=== PATIENT | female | born 1985 | race Caucasian/White ===

== ENCOUNTER 2021-12-04 08:15 | Inpatient (IN) | payer MEDICAID ==
[~2021-12-04] VITALS: Ht 147.3 cm; Wt 103.9 kg
[2021-12-04] MEDS ORDERED: METHYLERGONOVINE MALEATE 0.2 MG/ML IM PRN (09:15)
[2021-12-04] MEDS ORDERED: CARBOPROST TROMETHAMINE 250 MCG/ML AMPUL IM PRN (09:15)
[2021-12-04] MEDS ORDERED: NALOXONE HCL 0.4 MG/ML 1ML VIAL IM PRN (09:15)
[2021-12-04] MEDS ORDERED: OXYTOCIN 30 UNITS/500ML NS PMX 500 ML IV SCH ×2 (09:15→12:15)
[2021-12-04 09:27] LABS: BASOPHILS % 0.4 % (0.0-2.0); EOSINOPHILS % 1.2 % (0.0-5.0); HEMATOCRIT. 34.5 % (36.0-48.0); HEMOGLOBIN. 11.4 g/dL (12.0-16.0); LYMPHOCYTES % 25.1 % (20.0-50.0); MEAN CORPUSCULAR VOLUME 84.5 fL (81.0-99.0); MEAN PLATELET VOLUME 9.8 fl (7.4-10.4); MONOCYTES % 6.6 % (2.0-8.0); NEUTROPHILS % 66.7 % (40.0-76.0); PLATELET 262 x1000/uL (130-400); RED BLOOD CELL COUNT 4.09 mill/uL (4.2-5.4); RED CELL DISTRIBUTION WIDTH 14.8 % (11.6-14.6)
[2021-12-04 09:30] LABS: CLARITY URINE CLEAR (CLEAR); COLOR URINE YELLOW (YELLOW); KETONES URINE NEGATIVE (NEGATIVE); LEUKOCYTE ESTERASE URINE NEGATIVE (NEGATIVE); NITRITE URINE NEGATIVE (NEGATIVE); OCCULT BLOOD URINE NEGATIVE (NEGATIVE); PROTEIN URINE NEGATIVE (NEGATIVE); SPECIFIC GRAVITY URINE 1.014 (1.005-1.030); UROBILINOGEN URINE 0.2 E.U./dL (0.2-1.0)
[2021-12-04] MEDS ORDERED: CITRIC ACID/SODIUM CITRATE SOLN 30ML UDC PO NR (09:30)
[2021-12-04 09:39] LABS: INR 0.9; PARTIAL THROMBOPLASTIN TIME 25.6 sec (23.4-31.0); PROTHROMBIN TIME 9.8 sec (9.6-11.0)
[2021-12-04] MEDS ORDERED: FENTANYL CITRATE/PF 50MCG/ML 2ML VIAL ONE (09:43)
[2021-12-04] MEDS ORDERED: EPHEDRINE SULFATE 50MG/ML VIAL ONE (09:43)
[2021-12-04] MEDS ORDERED: MORPHINE SULFATE/PF 1MG/ML 10ML AMP ONE (09:43)
[2021-12-04] MEDS ORDERED: CEFAZOLIN SODIUM 1000MG/VIAL ONE (09:44)
[2021-12-04] MEDS ORDERED: ONDANSETRON HCL 4MG/2ML INJ ONE (09:44)
[2021-12-04] MEDS ORDERED: PHENYLEPHRINE HCL 10 MG/ML 1ML (IV VIAL) IV ONE (09:44)
[2021-12-04] MEDS ORDERED: OXYTOCIN 10 UNITS/ML 1ML ONE (09:44)
[2021-12-04] MEDS ORDERED: DIPHENHYDRAMINE 50MG/ML VIAL ONE (09:44)
[2021-12-04 09:55] LABS: *AMPHETAMINES SCREEN URINE NEGATIVE (NEGATIVE); *BARBITURATES SCREEN URINE NEGATIVE (NEGATIVE); *BENZODIAZEPINES SCREEN URINE NEGATIVE (NEGATIVE); *COCAINE SCREEN URINE NEGATIVE (NEGATIVE); CANNABINOID URINE SCREEN NEGATIVE (NEGATIVE); METHADONE URINE SCREEN NEGATIVE (NEGATIVE); OPIATES URINE SCREEN NEGATIVE (NEGATIVE); PHENCYCLIDINE URINE SCREEN NEGATIVE (NEGATIVE)
[2021-12-04] MEDS: LACTATED RINGERS 1,000 ML IV SCH ×2 (10:04→10:05)
[2021-12-04 10:15] LABS: HEPATITIS B SURFACE ANTIGEN NEGATIVE
[2021-12-04 10:59] VITALS: BP 126/71
[2021-12-04] MEDS ORDERED: LACTATED RINGERS 1,000 ML IV SCH (11:15)
[2021-12-04] MEDS ORDERED: KETOROLAC 60MG/2ML VIAL IM ONE (11:51)
[2021-12-04] MEDS ORDERED: NALOXONE HCL 0.4 MG/ML 1ML VIAL IV PRN (12:15)
[2021-12-04] MEDS ORDERED: ONDANSETRON HCL 4MG/2ML INJ IV PRN (12:15)
[2021-12-04] MEDS ORDERED: RHO(D) IMMUNE GLOBULIN 300 MCG/SYR IM PRN (12:15)
[2021-12-04] MEDS ORDERED: BISACODYL 10MG SUPP PR PRN (12:15)
[2021-12-04] MEDS ORDERED: LANOLIN OINT 7GM TUBE TOP PRN (12:15)
[2021-12-04] MEDS ORDERED: HEMORRHOIDAL SUPP PR PRN (12:15)
[2021-12-04] MEDS ORDERED: BUTORPHANOL TARTRATE 2 MG/ML VIAL IV PRN (12:15)
[2021-12-04] MEDS ORDERED: DIPHENHYDRAMINE 25MG CAPSULE PO PRN (12:15)
[2021-12-04] MEDS ORDERED: DIPHENHYDRAMINE 50MG/ML VIAL IM PRN (12:15)
[2021-12-04] MEDS ORDERED: IBUPROFEN 400MG TABLET PO PRN (12:15)
[2021-12-04 14:40] VITALS: BP 122/68
[2021-12-04] MEDS ORDERED: INFLUENZA VACCINE 05/PF 0.5 ML SYRINGE IM ONE (15:45)
[2021-12-04 16:00] VITALS: BP 114/56
[2021-12-04] MEDS ORDERED: TETANUS, DIPHTHERIA, PERTUSSIS VAC/PF 0.5ML (>10YR OLD) IM ONE (16:00)
[2021-12-04] MEDS: SIMETHICONE 80MG TABLET CHEW PO SCH ×2 (17:28→21:00)
[2021-12-04] MEDS: MAGNESIUM/ALUMINUM HYDROXIDE/SIMETHICONE 30ML UDC PO SCH ×2 (17:28→21:00)
[2021-12-04] MEDS: KETOROLAC 30MG/ML VIAL IV SCH (17:29)
[2021-12-04 20:00] VITALS: BP 104/57
[2021-12-04] MEDS: DOCUSATE SODIUM 100MG CAPSULE PO SCH (21:00)
[2021-12-05] MEDS: KETOROLAC 30MG/ML VIAL IV SCH ×2 (00:45→06:38)
[2021-12-05 04:00] VITALS: BP 105/52
[2021-12-05 05:55] LABS: BASOPHILS % 0.2 % (0.0-2.0); EOSINOPHILS % 0.7 % (0.0-5.0); HEMATOCRIT. 27.7 % (36.0-48.0); HEMOGLOBIN. 9.4 g/dL (12.0-16.0); LYMPHOCYTES % 16.5 % (20.0-50.0); MEAN CORPUSCULAR HEMOGLOBIN 28.5 pg (28.0-32.0); MEAN CORPUSCULAR VOLUME 83.9 fL (81.0-99.0); MEAN PLATELET VOLUME 9.3 fl (7.4-10.4); MONOCYTES % 6.1 % (2.0-8.0); NEUTROPHILS % 76.5 % (40.0-76.0); PLATELET 199 x1000/uL (130-400); RED CELL DISTRIBUTION WIDTH 14.8 % (11.6-14.6)
[2021-12-05 08:00] VITALS: BP 112/59
[2021-12-05] MEDS: SIMETHICONE 80MG TABLET CHEW PO SCH ×4 (08:29→21:03)
[2021-12-05] MEDS: MAGNESIUM/ALUMINUM HYDROXIDE/SIMETHICONE 30ML UDC PO SCH ×4 (08:29→21:03)
[2021-12-05] MEDS: FERROUS SULFATE 325MG TABLET PO SCH ×3 (08:29→17:25)
[2021-12-05] MEDS: PRENATAL VIT/FE FUMARATE/FA TABLET PO SCH (08:30)
[2021-12-05 16:02] VITALS: BP 108/47
[2021-12-05] MEDS: IBUPROFEN 800MG TABLET PO PRN (17:26)
[2021-12-05] MEDS: DOCUSATE SODIUM 100MG CAPSULE PO SCH (21:04)
[2021-12-05] MEDS: ACETAMINOPHEN WITH CODEINE 300/30MG TABLET PO PRN (21:05)
[2021-12-05 21:59] VITALS: BP 112/51
[2021-12-06] MEDS: IBUPROFEN 800MG TABLET PO PRN ×3 (05:19→23:16)
[2021-12-06 06:00] VITALS: BP 116/61
[2021-12-06] MEDS: PRENATAL VIT/FE FUMARATE/FA TABLET PO SCH (08:27)
[2021-12-06] MEDS: MAGNESIUM/ALUMINUM HYDROXIDE/SIMETHICONE 30ML UDC PO SCH ×4 (08:27→20:50)
[2021-12-06] MEDS: SIMETHICONE 80MG TABLET CHEW PO SCH ×4 (08:27→20:50)
[2021-12-06] MEDS: FERROUS SULFATE 325MG TABLET PO SCH ×3 (08:27→17:51)
[2021-12-06 08:30] VITALS: BP 110/51
[2021-12-06] MEDS: ACETAMINOPHEN WITH CODEINE 300/30MG TABLET PO PRN (11:03)
[2021-12-06 15:45] VITALS: BP 116/69
[2021-12-06 20:00] VITALS: BP 121/75
[2021-12-06] MEDS: DOCUSATE SODIUM 100MG CAPSULE PO SCH (20:50)
[2021-12-07 04:30] VITALS: BP 116/52
[2021-12-07] MEDS ORDERED: IBUP-2030 PO (06:35)
[2021-12-07 08:00] VITALS: BP 113/54
[2021-12-07] MEDS: MAGNESIUM/ALUMINUM HYDROXIDE/SIMETHICONE 30ML UDC PO SCH (08:02)
[2021-12-07] MEDS: PRENATAL VIT/FE FUMARATE/FA TABLET PO SCH (08:02)
[2021-12-07] MEDS: SIMETHICONE 80MG TABLET CHEW PO SCH (08:02)
[2021-12-07] MEDS: FERROUS SULFATE 325MG TABLET PO SCH (08:02)
[2021-12-07 08:03] VITALS: BP 116/52
[2021-12-07] MEDS: IBUPROFEN 800MG TABLET PO PRN (08:03)
== END 2021-12-07 12:35 | disposition home or self-care (01) | DRG 539 ==
LOC: 8 EST LDRP 08:15 → OBSVTOIN 08:15 → 8EST 14:49
PROVIDERS: ADMIT Obstetrics & Gynecology; ATTEND Obstetrics & Gynecology
PROC: 10D00Z1 Extraction of Products of Conception, Low, Open Approach (ICD-10-PCS; principal; 2021-12-04)
PROC: 0UB70ZZ Excision of Bilateral Fallopian Tubes, Open Approach (ICD-10-PCS; 2021-12-04)
DX: O34.211 Maternal care for low transverse scar from previous cesarean delivery (principal); O99.214 Obesity complicating childbirth; Z20.822 Contact with and (suspected) exposure to COVID-19; Z3A.39 39 weeks gestation of pregnancy; Z37.0 Single live birth; Z30.2 Encounter for sterilization
CPT/HCPCS: 36415; 80305; 81003; 85025; 86592; 86703; 86762; 86850; 86900; 86920; 87340; 87426; 88302; 88307; 90686; 90715; 99281; J0690; J1200; J1885; J2274; J2370; J2405; J3010; J3490; J7120; J2590